=== PATIENT | male | born 1925 | race Caucasian/White ===

== ENCOUNTER → 2017-01-14 | Outpatient (CLI) | payer MEDICARE, BC ==
[~2017-01-14] MED LIST: ASPIRIN EC81 M1 PO; FEROSUL325 ( 651 PO; FERRO-TIME325 MG PO; HYTRIN PO; METFORMIN PO; MULTI VITAMIN1 EACH PO; NAPROSYN500 MG PO; OXAPROZIN600 MG PO; SIMVASTATIN40 MG PO; TERAZOSIN HCL10 MG PO; VITAMIN D3400 UNI1 PO; ZOCOR PO
--- NOTE | ~2017-01-14 | CT71 ---
[facility] A Service of [facility] RADIOLOGY TEXT RESULTS PATIENT: NAZARIO ESPINO LOCATION: [facility] : [birth year] UNIT #: [id number] AGE: [address]: Facundo Walker II, MD SEX: M ORDER DR: [id number] [facility] [address] [place], [place] [address] [id number] O MR#: [id number] [facility] #: [id number] NAME: NAZARIO ESPINO. : 1925 SEX: M STUDY DATE/TIME: 01/14/2017 13:36 UNIT: [facility] ROOM: STUDY DESCRIPTION: CT Head Wo Contrast Attending Physician: Facundo Walker II., M.D. Referring Physician: Facundo Walker II., M.D. Ordering Physician: Facundo Walker II., M.D. Primary Care Physician: No Primary Care Physician MEDICAL IMAGING REPORT This report is preliminary unless electronic signature is present EXAM CT of the head without contrast INDICATIONS Memory loss for 1.[address] images were obtained from the vertex of the skull through the skull base. No intravenous contrast was administered. This CT exam was performed with one or more of the following radiation dose reduction techniques: automatic control, adjustment of mA and/or kV according to patient size, and iterative reconstruction. FINDINGS No acute intracranial hemorrhage is identified. There is diffuse cerebral atrophy with compensatory ventricular dilatation, which is in keeping with the patient's age of 89. There is dense atherosclerotic involvement of the cavernous carotid arteries. 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 More focal area of decreased attenuation seen within the genu of the left internal capsule likely reflecting an old lacunar infarct and there is probably also one involving the anterior limb of the right internal capsule. There is partial opacification of the left frontal sinus which has progressed when compared to the exam from January of 2016. Some additional patchy opacification is noted within the ethmoid sinuses mastoid air cells appear clear. No aggressive osseous abnormalities are seen. There are no focal soft tissue abnormalities. IMPRESSION 1. No acute intracranial process identified. Specifically there is no evidence of acute hemorrhage, mass lesion or acute infarct. 2. Cerebral atrophy and microangiopathic disease as noted above. 3. Sinus inflammatory changes involving the ethmoid sinuses and left STS. [facility] [place] A Service of [facility] & [facility] RADIOLOGY TEXT RESULTS PATIENT: NAZARIO ESPINO LOCATION: [facility] : [birth year] UNIT #: [id number] AGE: [address]: Facundo Walker II, MD SEX: M ORDER DR: frontal sinus. Dictated by... Cinthia Bello M.D. THIS IS AN ELECTRONICALLY VERIFIED REPORT Cinthia Bello M.D. at 01/16/2017 12:25 PM AFF/rnr TD: 01/14/2017 23:27 JOB #: [id number] MEDICAL IMAGING REPORT Page 1 of 1 COPY
== END | disposition home or self-care (01) ==
LOC: CCAT 13:04
DX: R41.3 Other amnesia (principal); G31.9 Degenerative disease of nervous system, unspecified; I73.9 Peripheral vascular disease, unspecified; J32.2 Chronic ethmoidal sinusitis; J32.1 Chronic frontal sinusitis
CPT/HCPCS: 70450